=== PATIENT | male | born 1975 | race Hispanic/Latino ===

== ENCOUNTER 2021-12-07 08:44 | Emergency (ER) | payer MEDICAID ==
[2021-12-07] MEDS ORDERED: ACETAMINOPHEN 500 MG TAB PO ONE (09:15)
--- NOTE | 2021-12-07 09:26 | Emergency Department Report ---
ED Chest Pain HPI - General Chief Complaint: Chest Pain Stated Complaint: CHEST PAIN/HERINA PUI?: No Time Seen by Provider: 12/07/21 09:10 Source: patient Mode of arrival: Ambulatory Limitations: No Limitations - History of Present Illness Initial Comments: CC: Chest pain, abdominal pain HPI: This is a 46 yo male with hx of HTN, HLD, CAD, pyoderma gangrenosum, pancreatitis, cholelithiasis, abdominal hernia who presents with chest pain and abdominal pain. Patient has pain at a large hernia in the lower abdomen which is the size of a basketball. According to his report, his abdominal wall defect is over 16 inches. He had 3 surgeries 12 years ago including bowel resection, colostomy, and colostomy takedown. Abdominal pain dull moderate severe centered at the hernia. No vomiting. Gradual onset one day ago. No radiation. Chest pain began yesterday. Dull left-sided chest pain. No vomiting. Moderately severe. Gradual onset. He was informed that he has a partial blockage in an artery. MD Complaint: chest pain, other (hernia pain) -: Gradual, days(s) (one day) Onset: during rest Pain Location: left chest Pain Radiation: none Severity: moderate Severity scale (0 -10): 7 Quality: dull Consistency: constant Improves With: nothing Worsens With: nothing Context: recent travel (traveling from [place] to home in [facility]) Treatments Prior to Arrival: none - Related Data Home Medications Medication Instructions Recorded Confirmed Last Taken Divalproex [Getachew Garcia] 12/07/21 1 Day Ago ~12/06/21 500 mg SEROquel 12/07/21 1 Day Ago ~12/06/21 200 mg cloNIDine 12/07/21 1 Day Ago ~12/06/21 0.1 Allergies Allergy/AdvReac Type Severity Reaction Status Date / Time No Known Allergies Allergy Verified 12/07/21 08:53 Heart Score - HEART Score History: Slightly suspicious EKG: Non-specific Age: 45-65 Risk factors: 1-2 risk factors Troponin: < normal limit HEART Score: 3 - EKG Read Time Time EKG Completed: 08:51 EKG Read Time: 08:51 - Critical Actions Critical Actions: 0-3 pts:0.9-1.7%risk of adverse cardiac event.Candidate for discharge ED Review of Systems ROS: Stated complaint: CHEST PAIN/HERINA Other details as noted in HPI Comment: All other systems reviewed and negative Constitutional: denies: fever, malaise Respiratory: denies: cough, shortness of breath Cardiovascular: chest pain Gastrointestinal: abdominal pain. denies: nausea, vomiting, diarrhea, constipation ED Past Medical Hx - Past Medical History Previous Medical History?: Yes Hx Hypertension: Yes Hx Psychiatric Treatment: Yes Additional medical history: schizoprenia, bipolar, diveticulitis, pyoderma gangrenosum - Surgical History Past Surgical History?: Yes Additional Surgical History: colon removal/resection - Family History Family history: vascular disease - Social History Smoking Status: Current Every Day Smoker Substance Use Type: None - Medications Home Medications: Home Medications Medication Instructions Recorded Confirmed Last Taken Type Divalproex [Getachew Garcia] 12/07/21 1 Day Ago History ~12/06/21 500 mg SEROquel 12/07/21 1 Day Ago History ~12/06/21 200 mg cloNIDine 12/07/21 1 Day Ago History ~12/06/21 0.1 ED Physical Exam - General Limitations: No Limitations General appearance: alert, in no apparent distress - Head Head exam: Present: atraumatic, normocephalic - Eye Eye exam: Present: normal appearance - ENT ENT exam: Present: mucous membranes moist - Neck Neck exam: Present: normal inspection, full ROM - Respiratory Respiratory exam: Present: normal lung sounds bilaterally. Absent: respiratory distress, wheezes, rales, rhonchi - Cardiovascular Cardiovascular Exam: Present: normal rhythm, tachycardia, normal heart sounds. Absent: systolic murmur, diastolic murmur, rubs, gallop - GI/Abdominal GI/Abdominal exam: Present: soft, hernia (large lower abdominal hernia size of basketball, soft mobile, patient able to easily manipulate, healed abrasions on hernia). Absent: tenderness, guarding, rebound - Rectal Rectal exam: Present: deferred - Extremities Exam Extremities exam: Present: normal inspection - Neurological Exam Neurological exam: Present: alert, oriented X3 - Psychiatric Psychiatric exam: Present: normal affect, normal mood - Skin Skin exam: Present: warm, dry, intact, normal color. Absent: rash ED Course Vital Signs 12/07/21 12/07/21 12/07/21 08:58 09:35 09:45 Temperature 98.1 F Pulse Rate 122 H 108 H 106 H Respiratory 20 14 18 Rate Blood Pressure 172/125 176/112 176/112 O2 Sat by Pulse 99 100 98 Oximetry 12/07/21 12/07/21 12/07/21 10:01 10:15 10:31 Temperature Pulse Rate 98 H 97 H 103 H Respiratory 11 L 15 11 L Rate Blood Pressure 179/118 179/118 179/118 O2 Sat by Pulse 98 97 99 Oximetry 12/07/21 10:45 Temperature Pulse Rate 110 H Respiratory 15 Rate Blood Pressure 179/118 O2 Sat by Pulse 99 Oximetry ED Medical Decision Making - Lab Data Result diagrams: 12/07/21 09:29 12/07/21 09:29 - EKG Data -: EKG Interpreted by Me EKG shows normal: sinus rhythm, axis, intervals, QRS complexes Rate: normal - EKG Data 12/07/21 09:26 EKG obtained 0851 EKG interpreted by me Sinus tachycardia rate 120 bpm normal axis normal intervals no ST elevation nonischemic T wave pattern - Medical Decision Making 1. chest pain atypical for ACS Heart SCORE 3 2. abdominal pain without evidence of obstruction of peritonitis CBC, CMP, lipase wnl, equivocal d-dimer level without high suspicon of PE Mr. Aguilera is dc'd home Critical care attestation.: If time is entered above; I have spent that time in minutes in the direct care of this critically ill patient, excluding procedure time. ED Disposition Clinical Impression: Chest pain, Abdominal pain, Hernia Disposition: 01 HOME / SELF CARE / HOMELESS Is pt being admited?: No Does the pt Need Aspirin: No Condition: Stable Instructions: Nonspecific Chest Pain, Adult Referrals: VERONICA GONZALES MD [Primary Care Provider] - 3-5 Days
[2021-12-07] MEDS ORDERED: ONDANSETRON 4 MG ODT TAB PO ONE (09:33)
[2021-12-07 10:36] LABS: Basophils # (Auto) 0.1 K/mm3 (0.0-0.1); Basophils % (Auto) 0.6 % (0.0-1.8); Eosinophils % (Auto) 0.5 % (0.0-4.3); Hematocrit 43.2 % (35.5-45.6); Hemoglobin 14.3 gm/dl (11.8-15.2); Lymphocytes # (Auto) 1.4 K/mm3 (1.2-5.4); Lymphocytes % (Auto) 14.6 % (13.4-35.0); Mean Corpuscular HGB Conc 33 % (32-34); Mean Corpuscular Volume 89 fl (84-94); Monocytes # (Auto) 0.7 K/mm3 (0.0-0.8); Monocytes % (Auto) 7.3 % (0.0-7.3); Platelet Count 208 K/mm3 (140-440); Red Blood Count 4.88 M/mm3 (3.65-5.03); Red Cell Distribution Width 15.9 % (13.2-15.2)
[2021-12-07 10:57] LABS: Alanine Aminotransferase 35 units/L (7-56); Albumin 4.7 g/dL (3.9-5); BUN/Creatinine Ratio 16; Blood Urea Nitrogen 14 mg/dL (9-20); Calcium 10.1 mg/dL (8.4-10.2); Hemolysis Index 8
[2021-12-07 11:10] VITALS: BP 170/115
--- NOTE | 2021-12-08 17:59 | Electrocardiograph Report ---
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
== END 2021-12-07 11:24 | disposition home or self-care (01) ==
LOC: ED 08:44
DX: R07.9 Chest pain, unspecified (principal); R10.9 Unspecified abdominal pain; K46.9 Unspecified abdominal hernia without obstruction or gangrene; F17.200 Nicotine dependence, unspecified, uncomplicated; I10 Essential (primary) hypertension
CPT/HCPCS: 36415; 80053; 83690; 84484; 85025; 85379; 93005; 99283; J3490; Q0162